=== PATIENT | male | born 2000 | race Caucasian/White ===

== ENCOUNTER 2018-01-05 22:32 | Emergency (ER) | payer MEDICAID, OTHER ==
[~2018-01-05] VITALS: Ht 165.1 cm; Wt 64.4 kg
[2018-01-05] MEDS ORDERED: LEVO100T PO (23:23)
[2018-01-06 00:34] VITALS: BP 116/67
== END 2018-01-06 00:36 | disposition home or self-care (01) ==
LOC: ER 23:35
DX: K06.8 Other specified disorders of gingiva and edentulous alveolar ridge (principal); E03.9 Hypothyroidism, unspecified
CPT/HCPCS: 99281; 99282